=== PATIENT | male | born 1970 | race Caucasian/White ===

== ENCOUNTER 2017-10-13 10:27 | Emergency (ER) | payer OTHER ==
[2017-10-13] MEDS ORDERED: Bacitracin Oint 1 GM U/D Packet TOP ONE (10:43)
--- NOTE | 2017-10-13 10:46 | EDM.PDOC ---
ED HPI GENERAL MEDICAL PROBLEM - General Chief Complaint: General Stated Complaint: FISH HOOK IN LEFT THUMB Time Seen by Provider: 10/13/17 10:40 Source of Information: Reports: Patient History Limitations: Reports: No Limitations - History of Present Illness INITIAL COMMENTS - FREE TEXT/NARRATIVE: Here with a fish hook in his L thumb. Was here a week ago for the same thing. From [facility]. Tetanus UTD. Onset: Today Onset Date: 10/13/17 Onset Time: 09:05 Duration: Minutes: Location: Reports: Upper Extremity, Left Quality: Reports: Dull Severity: Mild Improves with: Reports: None Worsens with: Reports: Other (bumping hook) Context: Reports: Trauma Associated Symptoms: Reports: No Other Symptoms Treatments EASEMENT MAN: Reports: Other (see below) (none) - Related Data Allergies Allergy/AdvReac Type Severity Reaction Status Date / Time Penicillins Allergy Hives Verified 09/28/17 22:56 Home Meds: Home Meds Omeprazole Magnesium [Prilosec Otc] 1 tab PO DAILY 09/28/17 [History] Past Medical History Gastrointestinal History: Reports: GERD ED ROS GENERAL - Review of Systems Review Of Systems: See Below Constitutional: Reports: No Symptoms Skin: Reports: Wound (puncture wound L thumb) Neurological: Reports: No Symptoms ED EXAM, GENERAL - Physical Exam Exam: See Below Exam Limited By: No Limitations General Appearance: Alert, WD/WN, No Apparent Distress Extremities: Other (hook in L thumb, cut very short.) Neurological: Alert, Oriented, CN II-XII Intact, Normal Cognition, No Motor/ Sensory Deficits Psychiatric: Normal Affect, Normal Mood Skin Exam: Warm, Dry, Normal Color, No Rash, Wound/Incision (fish hook, single jacqui in L thumb.) Lymphatic: No Adenopathy ED GENERAL MEDICAL PROCEDURES - Additional/Other Procedure(s) Other (Free Text) Procedure(s): Thumb with hook is anesth with 1% lido locally. Hook is pushed through and cut. Wound cleaned and Bacitracin ointment applied. Course - Vital Signs Last Recorded V/S: Last Vital Signs Temp 36.2 C 10/13/17 10:50 Pulse 58 L 10/13/17 10:50 Resp 16 10/13/17 10:50 BP 149/80 H 10/13/17 10:50 Pulse Ox 97 10/13/17 10:50 - Orders/Labs/Meds Meds: Medications Discontinued Medications Generic Name Dose Route Start Last Admin Trade Name Zion PRN Reason Stop Dose Admin Bacitracin 1 dose 10/13/17 10:43 10/13/17 10:54 Bacitracin Oint 1 Gm TOP 10/13/17 10:44 1 dose ONETIME ONE Administration Lidocaine HCl 5 ml 10/13/17 10:43 10/13/17 10:54 Xylocaine-Mpf 1% INJECT 10/13/17 10:44 5 ml ONETIME ONE Administration Departure - Departure Time of Disposition: 10:56 Disposition: Home, Self-Care 01 Condition: Good Clinical Impression: Fish hook injury of left thumb Qualifiers: Encounter type: initial encounter Qualified Code(s): S69.92XA - Unspecified injury of left wrist, hand and finger(s), initial encounter - Discharge Information *PRESCRIPTION DRUG MONITORING PROGRAM REVIEWED*: Not Applicable *COPY OF PRESCRIPTION DRUG MONITORING REPORT IN PATIENT JEAN-PIERRE: Not Applicable Referrals: PCP,None [Primary Care Provider] - Forms: ED Department Discharge Additional Instructions: Clean wound twice daily with soap and water. Watch for and report any signs of infection. Use acetaminophen as needed for pain relief.
== END 2017-10-13 11:03 | disposition home or self-care (01) ==
LOC: JP.ED 10:27
DX: S60.352A Superficial foreign body of left thumb, initial encounter (principal); Z88.0 Allergy status to penicillin; W45.8XXA Other foreign body or object entering through skin, initial encounter
CPT/HCPCS: 99283